=== PATIENT | male | born 1970 | race Caucasian/White ===

== ENCOUNTER 2019-03-02 05:47 | Emergency (ER) | payer OTHER ==
[2019-03-02] MEDS ORDERED: NS 0.9% 1000 ML** 1,000 ML IV ONE (06:08)
[2019-03-02] MEDS ORDERED: Ondansetron INJ* 2 MG/ML VIAL IV ONE (06:08)
[2019-03-02] MEDS ORDERED: Morphine 4 MG/ML VIAL (1 ml) 4 MG/ML VIAL IV ONE (06:08)
[2019-03-02] MEDS ORDERED: Ketorolac INJ* 30 MG/ML 1 ML VIAL IV PUSH ONE (06:08)
--- NOTE | 2019-03-02 06:08 | ED ---
Abdominal Pain/Male - HPI Summary HPI Summary: Patient is a 48-year-old male who presents emergency department for right back and right lower quadrant pain that started acutely last night. Patient notes pain is constant and is beginning more severe. Associated symptoms of nausea. Also notes urinary urgency. No past medical history. Symptoms are moderate in severity. No associate symptoms of chest pain or shortness of breath. No current modifying factors. - History of Current Complaint Chief Complaint: EDFlankPain Stated Complaint: ABD PAIN PER PT Time Seen by Provider: 03/02/19 05:53 Hx Obtained From: Patient Pain Intensity: 9 - Allergies/Home Medications Allergies/Adverse Reactions: Allergies Allergy/AdvReac Type Severity Reaction Status Date / Time No Known Allergies Allergy Verified 03/02/19 06:00 PMH/Surg Hx/FS Hx/Imm Hx Previously Healthy: Yes - Surgical History Surgery Procedure, Year, and Place: collarbone repair Infectious Disease History: No Infectious Disease History: Denies: Hx Clostridium Difficile, History Other Infectious Disease, Traveled Outside the in Last 30 Days - Family History Known Family History: Positive: Non-Contributory - Social History Occupation: Employed Full-time Lives: With Family Alcohol Use: Occasionally Substance Use Type: Reports: None Smoking Status (MU): Never Smoked Tobacco Review of Systems Constitutional: Negative Negative: Fever, Chills Cardiovascular: Negative Negative: Palpitations, Chest Pain Respiratory: Negative Negative: Shortness Of Breath, Cough Positive: Abdominal Pain, Nausea. Negative: Vomiting, Diarrhea Positive: flank pain, urgency Skin: Negative Neurological: Negative All Other Systems Reviewed And Are Negative: Yes Physical Exam Triage Information Reviewed: Yes Vital Signs On Initial Exam: Initial Vitals Temp Pulse Resp BP Pulse Ox 96.9 F 83 20 152/97 99 03/02/19 05:48 03/02/19 05:48 03/02/19 05:48 03/02/19 05:48 03/02/19 05:48 Vital Signs Reviewed: Yes Appearance: Positive: Pain Distress - Pt. lying in bed, appears in pain but nontoxic. Skin: Positive: Warm, Dry Head/Face: Positive: Normal Head/Face Inspection Eyes: Positive: Normal, EOMI Neck: Positive: Supple Respiratory/Lung Sounds: Positive: Clear to Auscultation, Breath Sounds Present Cardiovascular: Positive: Normal, RRR Abdomen Description: Positive: Other: - ABd. is soft with tenderness to RLQ and R CVA. No rebound or guarding. Neurological: Positive: Normal, CN Intact II-III Psychiatric: Positive: Affect/Mood Appropriate Diagnostics - Vital Signs Vital Signs Temp Pulse Resp BP Pulse Ox 03/02/19 05:48 96.9 F 83 20 152/97 99 - Laboratory Result Diagrams: 03/02/19 06:11 03/02/19 06:11 Lab Statement: Any lab studies that have been ordered have been reviewed, and results considered in the medical decision making process. Abdominal Pain Male Course/Dx - Course Course Of Treatment: Pt. with right flank pain. Afebrile with stable VS. Suspect urolithiasis. Pt. give iv fluids, morphine and toradol. Labs unremarkable other than K of 3.3. U/A shows RBC without infection. CT abd/ .pelvis per radiology: IMPRESSION: Mild residual right hydroureteronephrosis. Suspect a recently passed calculus. seen in the dependent portion of the urinary bladder. Large renal cyst also noted on CT scan. On re-exam pt. is resting comfortably and pain has resolved. Results discussed. Discussed renal cyst and the need for f.u with PCP. A few tabs of lortab and zofran rx for residual pain. Pt. understands and agrees with plan. - Diagnoses Differential Diagnosis/HQI/PQRI: Ureteral Stone, Urinary Tract Infection Provider Diagnoses: Urolithiasis, Renal cyst Discharge ED - Sign-Out/Discharge Documenting (check all that apply): Patient Departure Patient Received Moderate/Deep Sedation with Procedure: No - Discharge Plan Condition: Improved Disposition: HOME Prescriptions: Hydrocodone/Acetaminophen [Hydrocodone-Acetamin 5-325 mg] 1 each PO Q6H #6 tablet MDD 4 Ondansetron TAB* [Zofran 4 MG Tab*] 4 mg PO Q6H PRN #8 tab PRN Reason: Nausea Patient Education Materials: Kidney Stones (ED), Kidney Cyst (ED) Referrals: [facility] [Outside] Additional Instructions: Schedule a follow up appointment with your PCP within 1-2 weeks for follow up Increase fluids Medication as directed Return to ER for increased pain, vomiting, fever, or if concerned - Billing Disposition and Condition Condition: IMPROVED Disposition: Home
[2019-03-02 06:21] LABS: ABS Eosinophils 0.1 10^3/ul (0-0.6); ABS Lymphocytes 2.3 10^3/ul (1.0-4.8); ABS Monocytes 0.8 10^3/ul (0-0.8); ABS Neutrophils 5.4 10^3/ul (1.5-7.7); Hematocrit 50 % (42-52); Hemoglobin 17.5 g/dL (14.0-18.0); Lymphocyte % 27.2 %; Mean Corpuscular HGB Conc 35 g/dL (31-36); Mean Corpuscular Hemoglobin 31 pg (27-31); Mean Corpuscular Volume 88 fL (80-94); Nucleated Red Blood Cells % 0.3; Platelet Count 240 10^3/uL (150-450); Red Blood Count 5.68 10^6 /uL (4.18-5.48); Red Cell Distribution Width 13 % (10-15); White Blood Count 8.6 10^3/uL (3.5-10.8)
[2019-03-02 06:44] LABS: Albumin 4.4 g/dL (3.2-5.2); Albumin/Globulin Ratio 1.8 (1-3); Calcium 9.2 mg/dL (8.6-10.3); EGFR African American 101.6 (>60); Globulin 2.4 g/dL (2-4); Potassium 3.3 mmol/L (3.5-5.0); Total Bilirubin 0.8 mg/dL (0.2-1.0); Total Protein 6.8 g/dL (6.4-8.9)
[2019-03-02 08:25] LABS: Urine Appearance Clear; Urine Bacteria Absent (Absent); Urine Bilirubin Negative (Negative); Urine Blood 3+ (Negative); Urine Color Yellow; Urine Glucose Negative (Negative); Urine Ketones Negative (Negative); Urine Nitrite Negative (Negative); Urine Protein Negative (Negative); Urine Red Blood Cell 3+(>10/hpf) (Absent); Urine Specific Gravity 1.012 (1.010-1.030); Urine Urobilinogen Negative (Negative); Urine White Blood Cell Trace(0-5/hpf) (Absent)
[2019-03-02 08:53] VITALS: BP 139/94
== END 2019-03-02 08:52 | disposition home or self-care (01) ==
LOC: ED 05:47
DX: N28.1 Cyst of kidney, acquired (principal); N20.9 Urinary calculus, unspecified; N13.30 Unspecified hydronephrosis; R11.0 Nausea
CPT/HCPCS: 36415; 74176; 80053; 81003; 81015; 85025; 87086; 96361; 96374; 96375; 99283; J1885; J2270; J2405